=== PATIENT | male | born 1960 | race Caucasian/White ===

== ENCOUNTER 2019-05-26 07:47 | Day surgery (SDC) | payer OTHER ==
[2019-05-26 09:09] LABS: ADD MAN DIFF? NO
[2019-05-26 09:11] LABS: BASOPHILS % 0.3 % (0.0-2.0); EOSINOPHILS # 0.4 10^3/ul (0.0-0.5); EOSINOPHILS % 4.2 % (0.0-7.0); HEMATOCRIT 34.1 % (42.0-52.0); LYMPHOCYTES # 1.9 10^3/ul (0.8-2.9); LYMPHOCYTES % 18.9 % (15.0-51.0); MEAN CORPUSCULAR HEMOGLOBIN 31.5 pg (29.0-33.0); MEAN CORPUSCULAR HGB CONC 32.3 g/dl (32.0-37.0); MEAN CORPUSCULAR VOLUME 97.7 fl (82.0-101.0); MEAN PLATELET VOLUME 9.1 fl (7.4-10.4); MONOCYTE # 0.8 10^3/ul (0.3-0.9); MONOCYTES % 7.3 % (0.0-11.0); NEUTROPHIL # 7.1 10^3/ul (1.6-7.5); NEUTROPHILS % 69.1 % (39.0-77.0); PLATELET COUNT 182 10^3/UL (140-415); RED BLOOD COUNT 3.49 10^6/ul (4.70-6.10); RED CELL DISTRIBUTION WIDTH 14.2 % (11.5-14.5)
[2019-05-26 09:11] LABS: WHITE BLOOD COUNT 10.2 10^3/ul (4.8-10.8)
[2019-05-26 09:28] LABS: ALANINE AMINOTRANSFERASE 21 IU/L (13-69); ALBUMIN 4.4 g/dl (3.3-4.9); ALBUMIN/GLOBULIN RATIO 1.33; ALKALINE PHOSPHATASE 64 IU/L (42-121); ANION GAP 13 (5-13); ASPARTATE AMINO TRANSFERASE 20 IU/L (15-46); BILIRUBIN,INDIRECT 0.3 mg/dl (0-1.1); BILIRUBIN,TOTAL 0.3 mg/dl (0.2-1.3); CALCIUM 9.1 mg/dl (8.4-10.2); CARBON DIOXIDE 22 mmol/L (21-31); CHLORIDE 100 mmol/L (97-110); Estimated GFR 6 mL/min (>60); GLUCOSE 121 mg/dl (70-220); POTASSIUM 4.6 mmol/L (3.5-5.1); SODIUM 135 mmol/L (135-144); TOTAL PROTEIN 7.7 g/dl (6.1-8.1)
[2019-05-26 09:31] LABS: BLOOD UREA NITROGEN 53 mg/dl (7-20); CREATININE 9.01 mg/dl (0.61-1.24)
[2019-05-26 09:37] LABS: INR 0.98; PROTIME 13.1 Sec (11.9-14.9)
[2019-05-26] MEDS ORDERED: GELATIN SIZE 100 SPONGE (09:39)
[2019-05-26] MEDS ORDERED: THROMBIN 5000 UNIT (RECOTHROM) VIAL (09:39)
[2019-05-26] MEDS ORDERED: HEPARIN 1000 UNITS/ML 10 ML INJ (09:40)
[2019-05-26] MEDS ORDERED: ROPIVACAINE 0.2% 20 ML VIAL (09:47)
[2019-05-26] MEDS ORDERED: ROCURONIUM 50 MG INJ (09:47)
[2019-05-26] MEDS ORDERED: MIDAZOLAM 1 MG/ML 2 ML INJ (09:47)
[2019-05-26] MEDS ORDERED: CEFAZOLIN 1 GM INJ (09:47)
[2019-05-26] MEDS ORDERED: FENTAnyl 50 MCG/ML VIAL (09:47)
[2019-05-26] MEDS ORDERED: PROPOFOL 20 ML (09:47)
[2019-05-26] MEDS ORDERED: OXYCODONE/ACETAMINOPHEN (5/325) TAB PO ×2 (10:00)
[2019-05-26] MEDS ORDERED: LABETALOL HCL 20MG INJ IV (10:00)
[2019-05-26] MEDS ORDERED: HYDROmorphONE 1 MG/5 ML IV SYRINGE IV ×3 (10:00)
[2019-05-26] MEDS ORDERED: FENTAnyl 50 MCG/ML VIAL IV ×3 (10:00)
[2019-05-26] MEDS ORDERED: MEPERIDINE 25 MG INJ IV (10:00)
[2019-05-26] MEDS ORDERED: hydrALAzine 20 MG INJ IV (10:00)
[2019-05-26] MEDS ORDERED: ONDANSETRON 4 MG INJ IV (10:00)
[2019-05-26] MEDS ORDERED: DIPHENHYDRAMINE 50 MG INJ IV (10:00)
[2019-05-26] MEDS: LIDOCAINE 1% (MPF) 30 ML INJ (10:26)
== END 2019-05-26 13:06 | disposition home or self-care (01) ==
LOC: SDS 07:47
DX: I12.0 Hypertensive chronic kidney disease with stage 5 chronic kidney disease or end stage renal disease (principal); N18.6 End stage renal disease
CPT/HCPCS: 36821; 71045; 80053; 85025; 85610; 85651; 85730; 93005